=== PATIENT | male | born 1995 | race Caucasian/White ===

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

== ENCOUNTER 2017-06-20 15:16 | Emergency (ER) | payer OTHER ==
[2017-06-20] MEDS ORDERED: ALBUTEROL NEB 2.5 MG/3 ML INH STA (17:19)
--- NOTE | 2017-06-20 17:20 | ED Physician Documentation ---
PD HPI URI - Stated complaint Stated Complaint: FLU LIKE SYMPTOMS - Chief complaint Chief Complaint: Resp - History obtained from History obtained from: Patient - History of Present Illness Timing - onset: Other (22-year-old with history of mild intermittent asthma presents with 5 days of productive cough, occasional posttussive emesis, chills and fevers which are gone and facial pressure. He has chest pain only with coughing. No shortness of breath.) Review of Systems Constitutional: denies: Fever, Chills Nose: reports: Rhinorrhea / runny nose, Congestion, Sinus pressure / pain Throat: denies: Sore throat Respiratory: reports: Cough. denies: Dyspnea PD PAST MEDICAL HISTORY - Past Surgical History Past Surgical History: Yes - Present Medications Home Medications: Ambulatory Orders Medication Instructions Recorded Confirmed Guaifenesin/Pseudoephedrne HCl 1 each PO BID PRN #20 tab.er.12h 06/20/17 [Mucinex D ER 600-60 mg Tablet] Mometasone Furoate [Nasonex] 1 spray NS BID #1 spray.pump 06/20/17 guaiFENesin/CODEINE [Robitussin AC] 5 - 10 ml PO Q6H PRN #120 ml 06/20/17 predniSONE [Deltasone] 60 mg PO DAILY 5 Days tablet 06/20/17 - Allergies Allergies/Adverse Reactions: Allergies Allergy/AdvReac Type Severity Reaction Status Date / Time No Known Drug Allergies Allergy Verified 06/20/17 15:28 - Social History Does the pt smoke?: No Smoking Status: Never smoker Does the pt drink ETOH?: No Does the pt have substance abuse?: No - Immunizations Immunizations are current?: Yes PD ED PE NORMAL - Vitals Vital signs reviewed: Yes - General General: Alert and oriented X 3, No acute distress - HEENT HEENT: PERRL, Ears normal, Moist mucous membranes, Pharynx benign, Other ( Sinuses are not tender) - Neck Neck: Supple, no meningeal sign, No bony TTP - Cardiac Cardiac: RRR, No murmur - Respiratory Respiratory: No respiratory distress, Other (Mildly diminished, nonfocal.) - Neuro Neuro: Alert and oriented X 3, Normal speech Results - Vitals Vitals: Vital Signs - 24 hr 06/20/17 06/20/17 15:26 17:37 Temperature 36.5 C Heart Rate 74 70 Respiratory 16 16 Rate Blood Pressure 141/71 H O2 Saturation 97 Oxygen O2 Source Room air - Rads (name of study) 2v chest Radiology: EMP read contemporaneously (SOILA) PD MEDICAL DECISION MAKING - ED course ED course: 22-year-old with 5 days of a viral process which is exacerbated his asthma. He was given a breathing treatment here and feeling better. Clear chest x-ray and unremarkable vital signs and exam otherwise. He also needed a work note. Departure - Departure Disposition: Home, Self Care Clinical Impression: Upper respiratory tract infection Qualifiers: URI type: unspecified viral URI Qualified Code(s): J06.9 - Acute upper respiratory infection, unspecified Condition: Good Record reviewed to determine appropriate education?: Yes Instructions: ED Bronchitis Asthmatic Prescriptions: guaiFENesin/CODEINE [Robitussin AC] 5 - 10 ml PO Q6H PRN #120 ml PRN Reason: Cough Guaifenesin/Pseudoephedrne HCl [Mucinex D ER 600-60 mg Tablet] 1 each PO BID PRN #20 tab.er.12h PRN Reason: congestion Mometasone Furoate [Nasonex] 1 spray NS BID #1 spray.pump predniSONE [Deltasone] 60 mg PO DAILY 5 Days tablet Comments: Call your doctor to arrange a follow-up appointment, make the next available appointment. In the interim, return anytime if worse or if new symptoms develop. Your blood pressure was elevated today on check into the emergency department. This does not mean that you have hypertension, it is a common phenomenon to come to the emergency department and have elevated blood pressure. I recommend that you see your primary care physician within the week to have it rechecked when you are feeling better. Forms: Activity restrictions
[2017-06-20 17:58] VITALS: BP 151/72
--- NOTE | 2017-06-20 18:02 | XRAY Report ---
EXAM: CHEST RADIOGRAPHY EXAM DATE: 06/20/2017 05:32 PM. CLINICAL HISTORY: Cough. Flu symptoms for one week. COMPARISON: 06/19/2015. TECHNIQUE: 2 views. FINDINGS: Lungs/Pleura: No focal opacities evident. No pleural effusion. No pneumothorax. Normal volumes. Mediastinum: Heart and mediastinal contours are unremarkable. Other: No bony abnormalities noted. IMPRESSION: Normal 2-view chest radiography. [facility] Referring Provider Line: [phone] SITE ID: [id number]
== END 2017-06-20 17:57 | disposition home or self-care (01) ==
LOC: ED 15:16
DX: J06.9 Acute upper respiratory infection, unspecified (principal); R03.0 Elevated blood-pressure reading, without diagnosis of hypertension
CPT/HCPCS: 71046; 94640; 99283; J7613

== ENCOUNTER 2017-06-25 10:46 | Emergency (ER) | payer OTHER ==
--- NOTE | 2017-06-25 13:02 | ED Physician Documentation ---
History of Present Illness - Stated complaint Stated Complaint: COUGH - Chief complaint Chief Complaint: Resp - Additonal information Additional information: hx from pt 22 y/o male hx asthma approx 10 days of fever cough myalgias and some post tussive emesis neg CXR a week ago not better mom with same no travel Review of Systems Constitutional: reports: Fever, Myalgias Respiratory: reports: Cough GI: reports: Vomiting (post tussive) Musculoskeletal: denies: Extremity swelling PD PAST MEDICAL HISTORY - Past Surgical History Past Surgical History: Yes - Present Medications Home Medications: Ambulatory Orders Medication Instructions Recorded Confirmed Guaifenesin/Pseudoephedrne HCl 1 each PO BID PRN #20 tab.er.12h 06/20/17 [Mucinex D ER 600-60 mg Tablet] Mometasone Furoate [Nasonex] 1 spray NS BID #1 spray.pump 06/20/17 guaiFENesin/CODEINE [Robitussin AC] 5 - 10 ml PO Q6H PRN #120 ml 06/20/17 Benzonatate [Tessalon] 100 mg PO TID PRN #20 capsule 06/25/17 Fluticasone [Flonase] 1 sprays SARWAT BID PRN #1 bottle 06/25/17 guaiFENesin/DEXTROMETHORPHAN 10 ml PO Q6H PRN #120 ml 06/25/17 [Robitussin Dm] - Allergies Allergies/Adverse Reactions: Allergies Allergy/AdvReac Type Severity Reaction Status Date / Time No Known Drug Allergies Allergy Verified 06/25/17 11:08 - Social History Does the pt smoke?: No Smoking Status: Never smoker Does the pt drink ETOH?: No Does the pt have substance abuse?: No - Immunizations Immunizations are current?: Yes PD ED PE NORMAL - Vitals Vital signs reviewed: Yes - General General: Alert and oriented X 3 - HEENT HEENT: PERRL, Moist mucous membranes. No: Pharynx benign (mild erythema from cough) - Neck Neck: Supple, no meningeal sign - Cardiac Cardiac: RRR - Respiratory Respiratory: No respiratory distress, Other (dec saturnino, no wheeze or ronchi) - Derm Derm: Normal color - Extremities Extremities: No edema - Neuro Neuro: Alert and oriented X 3 Results - Vitals Vitals: Vital Signs - 24 hr 06/25/17 06/25/17 11:04 13:07 Temperature 36.2 C L 36.4 C L Heart Rate 84 56 L Respiratory 20 20 Rate Blood Pressure 139/52 H 143/80 H O2 Saturation 95 94 Oxygen O2 Source Room air - Labs Labs: Laboratory Tests 06/25/17 13:00 Influenza A (Rapid) Negative Influenza B (Rapid) Negative Influenza Types A,B Ag - - Rads (name of study) CXR Radiology: See rad report (neg) Departure - Departure Disposition: 01 Home, Self Care Clinical Impression: Viral URI with cough Condition: Good Instructions: ED Viral Syndrome Prescriptions: Benzonatate [Tessalon] 100 mg PO TID PRN #20 capsule PRN Reason: to ease cough Fluticasone [Flonase] 1 sprays SARWAT BID PRN #1 bottle PRN Reason: congestion guaiFENesin/DEXTROMETHORPHAN [Robitussin Dm] 10 ml PO Q6H PRN #120 ml PRN Reason: Cough Comments: The xray does not show pneumonia Your symptoms sound like influenza but the flu swabs are negative This is likely a viral syndrome So antibiotics won't help But I have prescribed medications to help you feel better and a note for work Forms: Activity restrictions
[2017-06-25] MEDS ORDERED: guaiFENesin/DEXTROMETHORPHAN 10 ML UDC PO STA (13:03)
[2017-06-25] MEDS ORDERED: BENZONATATE 100 MG CAPSULE PO STA (13:03)
--- NOTE | 2017-06-25 14:25 | XRAY Report ---
EXAM: CHEST RADIOGRAPHY EXAM DATE: 06/25/2017 02:07 PM. CLINICAL HISTORY: Fever cough. COMPARISON: 06/20/2017. TECHNIQUE: 2 views. FINDINGS: Lungs/Pleura: No focal opacities evident. No pleural effusion. No pneumothorax. Normal volumes. Mediastinum: Heart and mediastinal contours are unremarkable. Other: None. IMPRESSION: Negative chest. [facility] Referring Provider Line: [phone] SITE ID: [id number]
[2017-06-25 15:00] VITALS: BP 136/76
== END 2017-06-25 15:00 | disposition home or self-care (01) ==
LOC: ED 10:46
DX: J06.9 Acute upper respiratory infection, unspecified (principal); B97.89 Other viral agents as the cause of diseases classified elsewhere; R05 Cough
CPT/HCPCS: 71046; 87275; 87276; 99283; A9270